=== PATIENT | female | born 1965 | race Caucasian/White ===

== ENCOUNTER 2016-08-22 14:22 | Emergency (ER) | payer OTHER ==
[~2016-08-22] VITALS: Ht 154.9 cm; Wt 77.1 kg
[2016-08-22 14:31] VITALS: BP 135/101
--- NOTE | 2016-08-22 14:34 | NUR ---
Patient ambulated to bed 07.
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
--- NOTE | 2016-08-22 15:28 | NUR ---
Dr. Mehta evaluating patient at bedside.
[2016-08-22] MEDS ORDERED: ACETAMINOPHEN 325 MG TAB PO ONE (15:40)
--- NOTE | 2016-08-22 15:46 | NUR ---
Patient going to XRAY via wheelchair per tech.
--- NOTE | 2016-08-22 16:01 | NUR ---
Patient back from XRAY via wheelchair per tech.
[2016-08-22 17:05] VITALS: BP 112/76
--- NOTE | 2016-08-22 17:07 | NUR ---
Patient discharged with v/s stable. Written and verbal after care instructions given and explained. Patient alert, oriented and verbalized understanding of instructions. Ambulatory with steady gait. All questions addressed prior to discharge. ID band removed. Patient advised to follow up with PMD. Rx of CEPHALEXIN & NAPROSYN given. Patient educated on indication of medication including possible reaction and side effects. Opportunity to ask questions provided and answered.
== END 2016-08-22 17:07 | disposition home or self-care (01) ==
LOC: MED 14:22
DX: S16.1XXA Strain of muscle, fascia and tendon at neck level, initial encounter (principal); G89.29 Other chronic pain; R51 Headache; M54.9 Dorsalgia, unspecified; N39.0 Urinary tract infection, site not specified; V89.2XXA Person injured in unspecified motor-vehicle accident, traffic, initial encounter; Y93.89 Activity, other specified; Y92.89 Other specified places as the place of occurrence of the external cause; Y99.8 Other external cause status

== ENCOUNTER 2018-04-22 18:16 | Emergency (ER) | payer OTHER ==
[~2018-04-22] VITALS: Ht 162.6 cm; Wt 73.5 kg
[2018-04-22 18:20] VITALS: BP 122/83
--- NOTE | 2018-04-22 18:25 | NUR ---
PT AMBULATES TO BED 3
--- NOTE | 2018-04-22 18:27 | NUR ---
BIB DTR C/O URINARY BURNING SENSATION& MOSER X 3 DAYS. PT STATES SHE WENT TO PCP EARLIER TODAY AND MEDICATION GIVEN " BACTRIUM" NOT EFFECTIVE. HX; DENIES. RX; BACTRIM, [email or web address].A PATIENT STATES PAIN OF 9/10 AT THIS TIME; VSS; PATIENT POSITIONED FOR COMFORT; HOB ELEVATED; BEDRAILS UP X2; BED DOWN. ER MD MADE AWARE OF PT STATUS.
--- NOTE | 2018-04-22 18:39 | NUR ---
Patient being evaluated by physician at bedside.
--- NOTE | 2018-04-22 19:08 | NUR ---
Pt report given to HOSSEIN JI. Transfer of care at this time.
[2018-04-22 19:14] VITALS: BP 119/72
== END 2018-04-22 19:14 | disposition home or self-care (01) ==
LOC: MED 18:16
DX: N39.0 Urinary tract infection, site not specified (principal)
CPT/HCPCS: 81002; 87086; 99283

== ENCOUNTER 2018-09-28 18:54 | Emergency (ER) | payer OTHER ==
[~2018-09-28] VITALS: Ht 160 cm; Wt 78.0 kg
[2018-09-28 19:07] VITALS: BP 128/74
--- NOTE | 2018-09-28 19:38 | NUR ---
PT AMBULATED TO BED 3
--- NOTE | 2018-09-28 19:45 | NUR ---
C/O L SIDE FLANK/BACK PAIN X 1 DAY S/P FALLING AT HOME. PT STATES SHE SLIPPED AND FELL AND THE PAIN BEGAN AFTER. DENIES LOC, N/V/D/FEVER. PT STATES SHE HAS A "LITTLE" PAIN WHILE PEEING. BRUISING & TENDERNESS NOTED TO LEFT SIDE UPPER BACK/FLANK AREA. SKIN IS PINK/WARM/DRY; AAOX4 WITH UNSTEADY GAIT; LUNGS CLEAR BL; HR EVEN AND REGULAR; PATIENT POSITIONED FOR COMFORT; HOB ELEVATED; BEDRAILS UP X1; BED DOWN. ER MD MADE AWARE OF PT STATUS.
--- NOTE | 2018-09-28 20:10 | NUR ---
PROVIDED PT WITH URINE SPECIMEN CUP
--- NOTE | 2018-09-28 21:11 | NUR ---
REPORT GIVEN TO HOSSEIN JI
[2018-09-28] MEDS ORDERED: KETOROLAC 30 MG/ML VIAL IM ONE (21:30)
[2018-09-28 22:10] VITALS: BP 128/74
--- NOTE | 2018-09-28 22:10 | NUR ---
DISCHARGE PAPERWORK GIVEN TO PT. 0/10 PAIN. VSS. NO FLANK PAIN AT THIS TIME. GIVEN RX FOR NORCO AND NAPROSYN. SIDE EFFECTS EXPLAINED. PT VERBALIZED UNDERSTANDING OF DC INSTRUCTIONS. INSTURCTED WHEN TO F/U WITH PCP OR WHEN TO RETURN TO ER. PT VERBALIZED UNDERSTANDING OF DC INSTRUCTIONS. ALL QUESTIONS ANSWERED.
== END 2018-09-28 22:10 | disposition home or self-care (01) ==
LOC: MED 18:54
DX: S30.1XXA Contusion of abdominal wall, initial encounter (principal); M54.9 Dorsalgia, unspecified; Z98.890 Other specified postprocedural states; W18.09XA Striking against other object with subsequent fall, initial encounter; Y93.89 Activity, other specified; Y92.89 Other specified places as the place of occurrence of the external cause; Y99.8 Other external cause status
CPT/HCPCS: 71101; 81002; 81025; 96372; 99283; J1885

== ENCOUNTER 2019-01-19 14:01 | Emergency (ER) | payer OTHER ==
[~2019-01-19] VITALS: Ht 154.9 cm; Wt 80.7 kg
[2019-01-19 14:07] VITALS: BP 129/86
--- NOTE | 2019-01-19 14:15 | NUR ---
Note vidya in EDM - 01/19/19 at 1427 by [facility] BIB SELF. AAO X4 C/O DYSURIA AND CHILLS X TODAY. PT DENIES FEVER, N/V/D, FOUL ODOR TO URINE, HEMATURIA. PT ABLE TO URINATE WITHOUT FREQUENCY NOR RETENTION. ER TO EVALUATE PT.
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
--- NOTE | 2019-01-19 15:09 | NUR ---
DR WELCH AT BEDSIDE FOR PT EVALUATION
[2019-01-19 15:35] VITALS: BP 125/83
--- NOTE | 2019-01-19 15:35 | NUR ---
Patient discharged with v/s stable. Written and verbal after care instructions given and explained. Patient alert, oriented and verbalized understanding of instructions. Ambulatory with steady gait. All questions addressed prior to discharge. ID band removed. Patient advised to follow up with PMD. Rx of PYRIDIUM, CIPRO, ZOFRAN given. Patient educated on indication of medication including possible reaction and side effects. Opportunity to ask questions provided and answered.
== END 2019-01-19 15:35 | disposition home or self-care (01) ==
LOC: MED 14:01
DX: N39.0 Urinary tract infection, site not specified (principal); Z98.890 Other specified postprocedural states
CPT/HCPCS: 81002; 81025; 99283

== ENCOUNTER 2022-06-19 16:53 | Emergency (ER) | payer OTHER ==
[~2022-06-19] VITALS: Ht 154.9 cm; Wt 76.2 kg
[2022-06-19 17:02] VITALS: BP 120/82
--- NOTE | 2022-06-19 18:24 | NUR ---
pt left without dc paperwork
== END 2022-06-19 18:19 | disposition home or self-care (01) ==
LOC: MED 16:53
DX: H93.11 Tinnitus, right ear (principal); R03.0 Elevated blood-pressure reading, without diagnosis of hypertension
CPT/HCPCS: 99281